=== PATIENT | female | born 1960 | race Caucasian/White ===

== ENCOUNTER 2020-12-27 16:36 | Emergency (ER) | payer OTHER ==
[~2020-12-27] VITALS: Ht 152.4 cm; Wt 94.3 kg
[~2020-12-27 16:36] MED LIST: ACET-10509 BC; ALBU0.0912 IH; BACL10TA4 PO; DIPH25TA39 PO
[2020-12-27 17:09] VITALS: BP 137/69
[2020-12-27] MEDS ORDERED: NAPR-54 PO (17:58)
[2020-12-27] MEDS ORDERED: CEPH-588 PO (17:58)
[2020-12-27 18:15] VITALS: BP 137/69
--- NOTE | 2020-12-27 18:15 | NUR ---
NO NURSING INTERVENTIONS IMPLEMENTED
--- NOTE | 2020-12-27 18:15 | NUR ---
Patient discharged with v/s stable. Written and verbal after care instructions given and explained. Patient alert, oriented and verbalized understanding of instructions. Ambulatory with steady gait. All questions addressed prior to discharge. ID band removed. Patient advised to follow up with PMD. Rx of KEFLEX AND NAPROSYN given. Patient educated on indication of medication including possible reaction and side effects. Opportunity to ask questions provided and answered.
== END 2020-12-27 18:15 | disposition home or self-care (01) ==
LOC: MED 16:36
DX: N61.0 Mastitis without abscess (principal); I10 Essential (primary) hypertension; Z79.899 Other long term (current) drug therapy
CPT/HCPCS: 99283

== ENCOUNTER 2021-12-15 15:38 | Emergency (ER) | payer OTHER ==
[~2021-12-15] VITALS: Ht 149.9 cm; Wt 89.8 kg
[~2021-12-15 15:38] MED LIST changes: +CEPH-588 PO; +NAPR-54 PO
[2021-12-15 15:43] VITALS: BP 142/77
--- NOTE | 2021-12-15 18:45 | NUR ---
PT GIVEN ORTHO SHOE FOR L FOOT. PT STATED SHE WOULD WANT TO PUT IT ON AT HOME.
--- NOTE | 2021-12-15 18:50 | NUR ---
61/F PRESENTS TO ED WITH C/O RIGHT FOOT PAIN X2 MONTHS S/P SLIP AND FALL. STATES PAIN WORSENING THIS WEEK, PATIENT DENIES NEW INJURY OR TRAUMA. REPORTS TAKING TYLENOL YESTERDAY FOR PAIN WITH SOME RELIEF.
[2021-12-15 19:03] VITALS: BP 161/75
--- NOTE | 2021-12-15 19:04 | NUR ---
Patient discharged with v/s stable. Written and verbal after care instructions given and explained. Patient verbalized understanding. Ambulatory with steady gait. All questions addressed prior to discharge. Advised to follow up with PMD.
== END 2021-12-15 19:04 | disposition home or self-care (01) ==
LOC: MED 15:38
DX: S93.401A Sprain of unspecified ligament of right ankle, initial encounter (principal); I10 Essential (primary) hypertension; Z79.899 Other long term (current) drug therapy; W01.0XXA Fall on same level from slipping, tripping and stumbling without subsequent striking against object, initial encounter; Y93.89 Activity, other specified; Y92.89 Other specified places as the place of occurrence of the external cause; Y99.8 Other external cause status
CPT/HCPCS: 29515; 73610; 73630; 99284

== ENCOUNTER 2023-03-14 08:32 | Emergency (ER) | payer OTHER ==
[~2023-03-14] VITALS: Ht 152.4 cm; Wt 86.6 kg
[2023-03-14 08:45] VITALS: BP 133/69; PULSE 99; RESP 20; TEMP 97.8; O2SAT 100
[2023-03-14] MEDS ORDERED: KETOROLAC 30 MG/ML VIAL IM ONE (09:40)
[2023-03-14] MEDS ORDERED: SULF-59 PO ×2 (09:42→10:32)
[2023-03-14] MEDS ORDERED: IBUP-2213 PO ×2 (09:42→10:32)
[2023-03-14] MEDS ORDERED: CEPH-588 PO ×2 (09:42→10:32)
== END 2023-03-14 10:25 | disposition home or self-care (01) ==
LOC: MED 08:32
DX: S31.829A Unspecified open wound of left buttock, initial encounter (principal); L03.317 Cellulitis of buttock; I10 Essential (primary) hypertension; Z79.899 Other long term (current) drug therapy; Z79.2 Long term (current) use of antibiotics; Z79.1 Long term (current) use of non-steroidal anti-inflammatories (NSAID); X58.XXXA Exposure to other specified factors, initial encounter; Y92.89 Other specified places as the place of occurrence of the external cause; Y93.89 Activity, other specified; Y99.8 Other external cause status
CPT/HCPCS: 96372; 99283; J1885